=== PATIENT | male | born 1960 | race Caucasian/White ===

== ENCOUNTER 2016-08-12 14:12 | Observation (INO) ==
[2016-08-12] MEDS ORDERED: Aspirin 81 MG TAB.CHEW PO ONE (16:17)
--- NOTE | 2016-08-12 16:17 | Emergency Department Note ---
Disposition Clinical Impression: Chest pain Qualifiers: Chest pain type: unspecified Qualified Code(s): R07.9 - Chest pain, unspecified Fatigue Qualifiers: Fatigue type: unspecified Qualified Code(s): R53.83 - Other fatigue Disposition: Admitted As Inpatient Condition: Fair Referrals: NO,PCP [Primary Care Provider] - Forms: ED Satisfaction Letter Time of Disposition: 18:06 Chest Pain HPI - General Chief Complaint: ED Chest Pain Stated Complaint: C/P, SOB x2 days Time Seen by Provider: 08/12/16 15:20 Source: patient Limitations: no limitations Vital Signs Reviewed: Yes Nursing Notes Reviewed: Yes - History of Present Illness HPI Narrative: Patient is a 54-year-old male who presents with no cardiac history was had a episode of chest pain 6 months ago with negative blockages on heart catheterization. Study was done in [place] before patient moved. Patient presents today with episode of similar type chest pain midsternum 8/10 sharp stabbing nonreproducible palpation started 3 days ago. Patient states that he has been feeling fatigued and has had intermittent fevers of 101 degrees Fahrenheit over past 3 weeks. He also complains of worsening bilateral lower extremity pain with increase a sending erythema to both lower extremities below the knee 3 weeks as well. Patient states the way induration to his bilateral lower extremities significant for venous insufficiency started years ago. Patient denies history of diabetes or any other medical problems. He states is a family history of diabetes but has not been diagnosed. Patient currently does not have a PCP Pt complaint: chest pain Severity scale (1-10): 6 - Related Data Home Medications Medication Instructions Recorded Confirmed No Known Home Drugs 08/12/16 08/12/16 Allergies Allergy/AdvReac Type Severity Reaction Status Date / Time No Known Allergies Allergy Verified 08/12/16 14:20 All systems ED: reviewed and negative except as stated. Constitutional: Reports: fever Chest Pain PMH - Past Medical History Medical history: Reports: no medical history - Social History Smoking Status: Never smoker Alcohol use: Reports: none Drug use: Reports: none Physical Exam - General Limitations: no limitations General appearance: alert Course - Reevaluation(s) Reevaluation #1: Patient's condition is concerning for ACS/NH, DVT/PE, aortic dissection, esophageal rupture. Plan: CBC, BMP, chest x-ray Time: 15:57 Reevaluation #2: Patient states no change in symptoms so 10 out of 10 awaiting pain medication from pharmacy. Time: 16:20 Reevaluation #3: Patient received last dose nitroglycerin. Patient's pain 05/24. Time: 16:40 Additional Reevaluation(s): 1508 hrs: Patient states she is female. Pain still 05/24. - Consultations Consultation #1: Dr. Fairchild the hospitalist as accepted patient for admission to observation. Time: 18:06 Vital Signs Temperature 98.1 F 08/12/16 14:17 Pulse Rate 80 08/12/16 14:17 Respiratory Rate 18 08/12/16 14:17 Blood Pressure 166/81 08/12/16 14:17 O2 Sat by Pulse Oximetry 94 08/12/16 14:17 Temperature 98.1 F 08/12/16 14:17 Pulse Rate 77 08/12/16 15:20 Respiratory Rate 18 08/12/16 15:20 Blood Pressure 139/84 08/12/16 15:20 O2 Sat by Pulse Oximetry 96 08/12/16 15:20 Oxygen Delivery Oxygen Delivery Room Air Chest Pain - Lab Data Lab results reviewed: Yes I reviewed the patient's lab results. Lab results narrative: Short CBC 08/12/16 Range/Units 16:04 WBC 6.7 (4.3-11.1) K/mcL Hgb 12.4 L (12.9-16.9) g/dL Hct 37.1 L (37.5-50.1) % Plt Count 278 (140-400) K/mcL Neutrophils # 4.6 (1.6-8.9) K/mcL BMP 08/12/16 Range/Units 16:04 Sodium 140 (136-145) mEq/L Potassium 4.1 (3.5-4.5) mEq/L Chloride 105 (98-109) mEq/L Carbon Dioxide 29 (19-29) mEq/L BUN 13 (8-26) mg/dL Creatinine 0.76 (0.72-1.25) mg/dL Glucose 96 (70-99) mg/dL Calcium 8.9 (8.6-10.8) mg/dL Cardiac Enzymes 08/12/16 Range/Units 16:06 Troponin I 0.01 (0-0.03) ng/mL Liver Function 08/12/16 Range/Units 16:59 Total Bilirubin 0.4 (0.2-1.2) mg/dL Direct Bilirubin 0.2 (0.0-0.5) mg/dL AST 23 (5-34) Units/L ALT 16 (0-55) Units/L Alkaline Phosphatase 64 (38-126) Units/L Albumin 3.0 L (3.5-5.0) g/dL Urine 08/12/16 Range/Units 17:10 Urine Color Yellow (Yellow) Urine Clarity Clear (Clear) Urine pH 7.0 (5.0-8.0) pH Units Ur Specific [place] 1.019 (1.010-1.025) Urine Protein Negative (Neg-Trace) mg/dL Urine Glucose (UA) Normal (Normal) mg/dL - Radiology Data Radiology results reviewed: Yes I reviewed the patient's radiology results. Chest X-Ray 08/12/16 14:55 IMPRESSION: 1. Borderline enlarged cardiac silhouette. 2. Mild prominence of the pulmonary vasculature. D/ / Dinh Hooper MD / Dinh Hooper MD Interpreting Provider: Dinh Hooper MD - EKG Data EKG attestation: Yes I reviewed and interpreted this EKG. EKG shows normal: sinus rhythm Rate: normal Rhythm: NSR Heart Score - Score History: Moderately Suspicious EKG: Normal Age: 45-65 Risk Factors: 1-2 risk factors Troponin: Less than normal limit HEART Score Total: 3
[2016-08-12] MEDS: Nitroglycerin 0.4 MG TAB.SUBL SL PRN ×3 (16:26→16:40)
[2016-08-12 16:35] LABS: Basophils % 0.4 %; Eosinophils # 0.1 K/mcL (0.0-0.6); Eosinophils % 1.5 %; Hematocrit 37.1 % (37.5-50.1); Hemoglobin 12.4 g/dL (12.9-16.9); Immature Granulocytes % 0.3 % (0-4); Lymphocytes # 1.5 K/mcL (0.6-4.6); Mean Corpuscular HGB Conc 33.4 g/dL (31.6-35.5); Mean Corpuscular Hemoglobin 28.9 pg (28.0-33.3); Mean Corpuscular Volume 86.5 fL (83.0-100.0); Mean Platelet Volume 9.5 fL (9.4-12.4); Monocytes # 0.5 K/mcL (0.0-1.3); Monocytes % 7.3 %; Neutrophils # 4.6 K/mcL (1.6-8.9); Platelet Count 278 K/mcL (140-400); Red Blood Count 4.29 M/mcL (4.19-5.50); Red Cell Distribution Width 14.3 % (11.5-14.5); Segmented Neutrophils % 68.5 %
[2016-08-12 16:42] LABS: INR 1.1; Prothrombin Time 11.9 Seconds (9.4-12.1)
[2016-08-12 16:48] LABS: BUN/Creatinine Ratio 17 (6-26); Blood Urea Nitrogen 13 mg/dL (8-26); Calcium 8.9 mg/dL (8.6-10.8); Carbon Dioxide 29 mEq/L (19-29); Chloride 105 mEq/L (98-109); Glucose 96 mg/dL (70-99); Osmolality,Calculated 290 (280-300); Potassium 4.1 mEq/L (3.5-4.5); Sodium 140 mEq/L (136-145); eGFR For African Americans > 60 (> 60); eGFR For Non-African Americans > 60 (> 60)
[2016-08-12 17:26] LABS: Bilirubin,Urine Negative (Negative); Blood,Urine Negative (Negative); Clarity,Urine Clear (Clear); Color,Urine Yellow (Yellow); Glucose,Urine (UA) Normal (Normal); Ketones,Urine Negative (Negative); Leukocyte Esterase,Urine Negative (Negative); Nitrite,Urine Negative (Negative); Protein,Urine Negative (Neg-Trace); Specific Gravity,Urine 1.019 (1.010-1.025); Urobilinogen,Urine Normal (Normal)
[2016-08-12 17:33] LABS: Albumin/Globulin Ratio 0.7 (1.1-2.2); Bilirubin,Direct 0.2 mg/dL (0.0-0.5); Bilirubin,Indirect 0.2 mg/dL (0.0-1.2); Bilirubin,Total 0.4 mg/dL (0.2-1.2); Globulin 4.5 g/dL (2.4-3.5); Phosphorous 3.8 mg/dL (2.3-4.7); Total Protein 7.5 g/dL (6.0-8.3)
--- NOTE | 2016-08-12 17:54 | Emergency Department Note ---
START Narrative - START START: I examined this patient and my medical decision-making was reviewed with the FIELD SERVICE SUPERVISOR/PA/Advanced Practice Nurse/Resident Physician. I agree with the documented findings, disposition and treatment plan as described except to the extent set forth below. neg doppler bilat LE's needs admitted for r/o acs and leg infection
[2016-08-12] MEDS ORDERED: Naloxone 0.4 MG/ML INJ IVP PRN (20:01)
[2016-08-12] MEDS ORDERED: *HR* Morphine 2 MG/ML SYRINGE IVP PRN (20:01)
--- NOTE | 2016-08-12 20:14 | Internal Med History&Physical ---
Date of Encounter: 08/12/16 Time of Encounter: 20:08 Assessment and Plan (1) Chest pain Current visit: Yes Status: Acute Patient reporting intermittant mid-sternal chest pain that started last evening and has been worsening, it was relieved by nitro given in the ER. Initial troponin negative at 0.01. EKG with no ST elevations. CXR shows borderline enlarged cardiac silhouette and mild prominence of pulmonary vasculature. Risk factors include morbid obesity and family history. Patient reports he had a cardiac cath about 6 months ago at [facility] in [place], [place]. Ordered records request for cath and any other cardiac testing performed. Continuous manager review serial troponins echocardiogram in the morning. Qualifiers: Chest pain type: precordial pain Qualified Code(s): R07.2 - Precordial pain (2) Venous stasis ulcers of both lower extremities Current visit: Yes Status: Acute Patient with discoloration, swelling of BLE, with multiple venous stasis ulcers on bilateral shins. Consult to wound care ordered. (3) Bilateral edema of lower extremity Current visit: Yes Status: Acute Patient reports swelling has been worsening over the last week. Would recommend compression socks once his venous stasis ulcers are healed. Possibility of new CHF, will see what echocardiogram shows tomorrow. (4) DVT prophylaxis Current visit: Yes Status: Acute encourage ambulation lovenox 40mg SQ daily Internal Medicine - H&P: HPI Chief complaint: chest pain Admitted From: Emergency Dept Plans for Post Hospital Care: Home History of present illness: Mr. Yun is a 55 year old male with morbid obesity and no other significant past medical history presents to the ED today with complaints of chest pain. He reports the chest pain started last evening and he describes it as a dull ache. It comes and goes, and was increasing in intensity and duration so he came to the hospital. He reports some shortness of breath and nausea today as well as a headache. Additionally, his BLE have been swollen for the last week. He has some venous stasis ulcers on BLE that he reports have been there for several weeks, and discoloration that he reports is long- standing. He denies any lightheadedness, palpitations, recent fevers, chills or sweats. He denies any numbness or tingling. Evaluation in the ER included a troponin which was negative at 0.01. WBC was normal at 6.7. CXR showed borderline enlarged cardiac silhouette with mild prominence of the pulmonary vasculature. BLE dopplers were negative for DVT. On exam, patient is alert and oriented, in no distress, with BLE +3 pitting edema and BLE venous stasis ulcers. Heart has regular rate and rhythm, lungs are clear bilaterally to auscultation. Past Med Surg Social Fam HX - Past Medical History Medical history: no medical history - Past Surgical History Surgical History: orthopedic, other (c5-c6 fusion, right foot) - Social History Smoking Status: Never smoker Alcohol use: none Drug use: none - Family History Mother Living Status: Still Living Hx Family Cardiac Disorders: Yes Hx Family Endocrine Disorder: Yes (diabetes) Father Living Status: Age at : 75 Hx Family Cardiac Disorders: Yes Hx Family Respiratory Disorders: Yes Internal Medicine - H&P: Meds No Known Home Drugs 08/12/16 [History] Allergies No Known Allergies Allergy (Verified 08/12/16 14:20) All Systems PM: A 10-system review of systems was performed and is negative for pertinent findings except as documented above in the HPI. - Constitutional Constitutional: no chills, no fever(s), no night sweats - EENT Eyes: no change in vision, no discharge, no pain, no photophobia Ears: no ear discharge, no ear pain, no tinnitus Nose, mouth and throat: no dysphagia, no nasal discharge, no neck pain, no sore throat - Cardiovascular Cardiovascular ROS IM: chest pain, dyspnea, edema, no diaphoresis, no lightheadedness, no palpitations, no syncope - Respiratory Respiratory: cough (dry), no dyspnea, no wheezing, no excessive phlegm production - Gastrointestinal Gastrointestinal: no abdominal pain, no diarrhea, no hematemesis, no hematochezia, no melena, no nausea, no vomiting - Musculoskeletal Musculoskeletal ROS IM: no numbness, no tingling - Integumentary Integumentary IM: skin ulcer, no rash, no unusual bruising - Neurological Neurological ROS: headache(s), no confusion, no convulsions, no focal weakness, no numbness, no tingling, no tremor(s) - Hematologic/Lymphatic Hematologic/Lymphatic: no easy bruising - Constitutional Vitals: Temp Pulse Resp BP Pulse Ox 98.1 F 71 16 127/69 93 08/12/16 14:17 08/12/16 16:52 08/12/16 19:22 08/12/16 19:22 08/12/16 16:52 General appearance: Present: A&O X 3, morbidly obese, pleasant, no acute distress - Head Head exam: Present: atraumatic, normocephalic - Eye Eye exam: Present: PERRL, conjuntiva pink, sclera anicteric Pupils: Present: PERRL - Neck Neck exam general surgery: Present: supple, trachea midline. Absent: lymphadenopathy - Respiratory Respiratory exam: Present: CTAB. Absent: accessory muscle use, rales, rhonchi, wheezes - Cardiovascular Cardiovascular exam: Present: RRR, +S1, +S2. Absent: diastolic murmur, gallop, rubs, systolic murmur - Expanded Cardiovascular Exam Peripheral pulses: 3+/4+: Dorsalis Pedis (L) PM, Dorsalis Pedis (R) PM - GI/Abdominal GI/Abdominal exam: Present: normal bowel sounds, soft, no peritoneal signs. Absent: distended, tenderness - Extremities Exam Extremities exam: Present: pedal edema (ble +3 edema), warm, radial pulses palpable and symetrical. Absent: calf tenderness, cyanotic - Expanded Lower Extremities Exam Lower Leg exam: Present: erythema, swelling - Neurological Exam Neurological exam: Present: CN II-XII intact, oriented X3, no focal deficits. Absent: facial droop, speech deficit - Skin Skin exam: Present: dry, erythema Additional comments: BLE venous statis ulcers Internal Med - H&P Results - Labs CBC & Chem 7: 08/12/16 16:04 08/12/16 16:04 Labs: All Lab Results (24 Hours) 08/12/16 08/12/16 08/12/16 Range/Units 16:04 16:04 16:04 WBC 6.7 (4.3-11.1) K/mcL RBC 4.29 (4.19-5.50) M/mcL Hgb 12.4 L (12.9-16.9) g/dL Hct 37.1 L (37.5-50.1) % MCV 86.5 (83.0-100.0) fL MCH 28.9 (28.0-33.3) pg MCHC 33.4 (31.6-35.5) g/dL RDW 14.3 (11.5-14.5) % Plt Count 278 (140-400) K/mcL MPV 9.5 (9.4-12.4) fL Immature Gran % 0.3 (0-4) % Seg Neutrophils % 68.5 % Lymphocytes % 22.0 % Monocytes % 7.3 % Eosinophils % 1.5 % Basophils % 0.4 % Neutrophils # 4.6 (1.6-8.9) K/mcL Lymphocytes # 1.5 (0.6-4.6) K/mcL Monocytes # 0.5 (0.0-1.3) K/mcL Eosinophils # 0.1 (0.0-0.6) K/mcL Basophils # 0.0 (0.0-0.2) K/mcL PT 11.9 (9.4-12.1) Seconds INR 1.1 APTT 32.0 (26.0-36.0) Seconds Sodium 140 (136-145) mEq/L Potassium 4.1 (3.5-4.5) mEq/L Chloride 105 (98-109) mEq/L Carbon Dioxide 29 (19-29) mEq/L BUN 13 (8-26) mg/dL Creatinine 0.76 (0.72-1.25) mg/dL Est GFR ( Amer) > 60 (> 60) Est GFR (Non-Af Amer) > 60 (> 60) BUN/Creatinine Ratio 17 (6-26) Glucose 96 (70-99) mg/dL Calculated Osmolality 290 (280-300) Lactic Acid (0.5-2.2) mmol/L Calcium 8.9 (8.6-10.8) mg/dL Phosphorus (2.3-4.7) mg/dL Magnesium (1.6-2.6) mg/dL Total Bilirubin (0.2-1.2) mg/dL Direct Bilirubin (0.0-0.5) mg/dL Indirect Bilirubin (0.0-1.2) mg/dL AST (5-34) Units/L ALT (0-55) Units/L Alkaline Phosphatase (38-126) Units/L Troponin I (0-0.03) ng/mL Serum Total Protein (6.0-8.3) g/dL Albumin (3.5-5.0) g/dL Globulin (2.4-3.5) g/dL Albumin/Globulin Ratio (1.1-2.2) Urine Color (Yellow) Urine Clarity (Clear) Urine pH (5.0-8.0) pH Units Ur Specific [place] (1.010-1.025) Urine Protein (Neg-Trace) mg/dL Urine Glucose (UA) (Normal) mg/dL Urine Ketones (Negative) mg/dL Urine Blood (Negative) Urine Nitrite (Negative) Urine Bilirubin (Negative) Urine Urobilinogen (Normal) mg/dL Ur Leukocyte Esterase (Negative) Ur Culture Indicated? (NO) 08/12/16 08/12/16 08/12/16 Range/Units 16:06 16:59 16:59 WBC (4.3-11.1) K/mcL RBC (4.19-5.50) M/mcL Hgb (12.9-16.9) g/dL Hct (37.5-50.1) % MCV (83.0-100.0) fL MCH (28.0-33.3) pg MCHC (31.6-35.5) g/dL RDW (11.5-14.5) % Plt Count (140-400) K/mcL MPV (9.4-12.4) fL Immature Gran % (0-4) % Seg Neutrophils % % Lymphocytes % % Monocytes % % Eosinophils % % Basophils % % Neutrophils # (1.6-8.9) K/mcL Lymphocytes # (0.6-4.6) K/mcL Monocytes # (0.0-1.3) K/mcL Eosinophils # (0.0-0.6) K/mcL Basophils # (0.0-0.2) K/mcL PT (9.4-12.1) Seconds INR APTT (26.0-36.0) Seconds Sodium (136-145) mEq/L Potassium (3.5-4.5) mEq/L Chloride (98-109) mEq/L Carbon Dioxide (19-29) mEq/L BUN (8-26) mg/dL Creatinine (0.72-1.25) mg/dL Est GFR ( Amer) (> 60) Est GFR (Non-Af Amer) (> 60) BUN/Creatinine Ratio (6-26) Glucose (70-99) mg/dL Calculated Osmolality (280-300) Lactic Acid 0.7 (0.5-2.2) mmol/L Calcium (8.6-10.8) mg/dL Phosphorus 3.8 (2.3-4.7) mg/dL Magnesium 2.0 (1.6-2.6) mg/dL Total Bilirubin 0.4 (0.2-1.2) mg/dL Direct Bilirubin 0.2 (0.0-0.5) mg/dL Indirect Bilirubin 0.2 (0.0-1.2) mg/dL AST 23 (5-34) Units/L ALT 16 (0-55) Units/L Alkaline Phosphatase 64 (38-126) Units/L Troponin I 0.01 (0-0.03) ng/mL Serum Total Protein 7.5 (6.0-8.3) g/dL Albumin 3.0 L (3.5-5.0) g/dL Globulin 4.5 H (2.4-3.5) g/dL Albumin/Globulin Ratio 0.7 L (1.1-2.2) Urine Color (Yellow) Urine Clarity (Clear) Urine pH (5.0-8.0) pH Units Ur Specific [place] (1.010-1.025) Urine Protein (Neg-Trace) mg/dL Urine Glucose (UA) (Normal) mg/dL Urine Ketones (Negative) mg/dL Urine Blood (Negative) Urine Nitrite (Negative) Urine Bilirubin (Negative) Urine Urobilinogen (Normal) mg/dL Ur Leukocyte Esterase (Negative) Ur Culture Indicated? (NO) 08/12/16 Range/Units 17:10 WBC (4.3-11.1) K/mcL RBC (4.19-5.50) M/mcL Hgb (12.9-16.9) g/dL Hct (37.5-50.1) % MCV (83.0-100.0) fL MCH (28.0-33.3) pg MCHC (31.6-35.5) g/dL RDW (11.5-14.5) % Plt Count (140-400) K/mcL MPV (9.4-12.4) fL Immature Gran % (0-4) % Seg Neutrophils % % Lymphocytes % % Monocytes % % Eosinophils % % Basophils % % Neutrophils # (1.6-8.9) K/mcL Lymphocytes # (0.6-4.6) K/mcL Monocytes # (0.0-1.3) K/mcL Eosinophils # (0.0-0.6) K/mcL Basophils # (0.0-0.2) K/mcL PT (9.4-12.1) Seconds INR APTT (26.0-36.0) Seconds Sodium (136-145) mEq/L Potassium (3.5-4.5) mEq/L Chloride (98-109) mEq/L Carbon Dioxide (19-29) mEq/L BUN (8-26) mg/dL Creatinine (0.72-1.25) mg/dL Est GFR ( Amer) (> 60) Est GFR (Non-Af Amer) (> 60) BUN/Creatinine Ratio (6-26) Glucose (70-99) mg/dL Calculated Osmolality (280-300) Lactic Acid (0.5-2.2) mmol/L Calcium (8.6-10.8) mg/dL Phosphorus (2.3-4.7) mg/dL Magnesium (1.6-2.6) mg/dL Total Bilirubin (0.2-1.2) mg/dL Direct Bilirubin (0.0-0.5) mg/dL Indirect Bilirubin (0.0-1.2) mg/dL AST (5-34) Units/L ALT (0-55) Units/L Alkaline Phosphatase (38-126) Units/L Troponin I (0-0.03) ng/mL Serum Total Protein (6.0-8.3) g/dL Albumin (3.5-5.0) g/dL Globulin (2.4-3.5) g/dL Albumin/Globulin Ratio (1.1-2.2) Urine Color Yellow (Yellow) Urine Clarity Clear (Clear) Urine pH 7.0 (5.0-8.0) pH Units Ur Specific [place] 1.019 (1.010-1.025) Urine Protein Negative (Neg-Trace) mg/dL Urine Glucose (UA) Normal (Normal) mg/dL Urine Ketones Negative (Negative) mg/dL Urine Blood Negative (Negative) Urine Nitrite Negative (Negative) Urine Bilirubin Negative (Negative) Urine Urobilinogen Normal (Normal) mg/dL Ur Leukocyte Esterase Negative (Negative) Ur Culture Indicated? NO (NO) - Diagnostic Studies Chest x-ray Additional comments: Chest X-Ray 08/12/16 14:55 IMPRESSION: 1. Borderline enlarged cardiac silhouette. 2. Mild prominence of the pulmonary vasculature. D/ / Dinh Hooper MD / Dinh Hooper MD Interpreting Provider: Dinh Hooper MD
[2016-08-12] MEDS: Famotidine 20 MG TABLET PO SCH (21:45)
[2016-08-13 05:09] LABS: Basophils # 0.1 K/mcL (0.0-0.2); Basophils % 0.8 %; Eosinophils # 0.1 K/mcL (0.0-0.6); Eosinophils % 2.2 %; Hematocrit 36.1 % (37.5-50.1); Immature Granulocytes % 0.5 % (0-4); Lymphocytes # 1.6 K/mcL (0.6-4.6); Lymphocytes % 24.8 %; Mean Corpuscular HGB Conc 33.2 g/dL (31.6-35.5); Mean Corpuscular Hemoglobin 28.2 pg (28.0-33.3); Mean Corpuscular Volume 84.7 fL (83.0-100.0); Mean Platelet Volume 9.3 fL (9.4-12.4); Monocytes # 0.6 K/mcL (0.0-1.3); Monocytes % 8.9 %; Neutrophils # 4.1 K/mcL (1.6-8.9); Platelet Count 262 K/mcL (140-400); Red Blood Count 4.26 M/mcL (4.19-5.50); Red Cell Distribution Width 14.2 % (11.5-14.5); Segmented Neutrophils % 62.8 %
[2016-08-13 05:54] LABS: BUN/Creatinine Ratio 18 (6-26); Blood Urea Nitrogen 14 mg/dL (8-26); Calcium 8.5 mg/dL (8.6-10.8); Carbon Dioxide 24 mEq/L (19-29); Chloride 108 mEq/L (98-109); Glucose 118 mg/dL (70-99); Osmolality,Calculated 294 (280-300); Potassium 3.7 mEq/L (3.5-4.5); Sodium 141 mEq/L (136-145); eGFR For African Americans > 60 (> 60); eGFR For Non-African Americans > 60 (> 60)
--- NOTE | 2016-08-13 06:45 | Electrocardiograph Report ---
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
[2016-08-13] MEDS ORDERED: *HR* Enoxaparin 40 MG/0.4 ML SYRINGE SQ SCH (07:00)
[2016-08-13] MEDS: Famotidine 20 MG TABLET PO SCH (08:08)
--- NOTE | 2016-08-13 11:02 | ECHO - Doppler Report ---
Echocardiogram Name: Behzad Yun Date of Study: 08/13/2016 Date: 1960 Ht: 73.0 in Medical Record#: [id number] Age: 55 Wt: 386.0 lb Gender: Male BSA: 2.85 Order #: [id number] Location: [facility] Room #: 2B22 Reading Physician: Stephen Luna MD, [facility] Insurance Sales Executive: John Joya Ordering Physician: Alison Harrington, ANTHONY Primary Physician: None Indications: Chest pain Impressions: Technically sub-optimal due to body habitus. Normal LV systolic function, LVEF 55%. Normal right ventricular size and function. No significant valvular dysfunction. Left Ventricular Wall Motion: Rest Echo Findings All wall segments showed normal motion. Findings: Study Quality * Technically sub-optimal due to body habitus. ECG Findings * Normal sinus rhythm. Left Ventricle * Normal LV systolic function, LVEF 55%. * Normal LV chamber size and wall thickness. * Indeterminate diastolic function. Right Ventricle * Normal right ventricular size and function. Left Atrium * Normal left atrial size. Right Atrium * Normal right atrial size. Aorta * Aortic root was not well visualized. Appears normal in size. Pericardium * There is no pericardial effusion present. IVC * Normal IVC dimensions and inspiratory collapse. Aortic Valve * Aortic valve not well visualized. Appears trileaflet with mild sclerosis. * No aortic stenosis. * No aortic regurgitation. Mitral Valve * Normal mitral valve structure. * No mitral stenosis. * Trace mitral regurgitation. Tricuspid Valve * Normal tricuspid valve structure. * No tricuspid stenosis. * Trace tricuspid regurgitation. * Unable to estimate RVSP due to lack of TR jet. Pulmonic Valve * Pulmonic valve not well visualized. * No pulmonic stenosis. * No pulmonic regurgitation. History Family History of CAD Measurements: BP: 138/ 70 2D Normal Values RVIDd: 3.70 cm IVSd: .90 cm 0.6 - 1.0 cm LVIDd: 5.50 cm 3.7 - 5.6 cm LVPWd: .90 cm 0.6 - 1.1 cm LVIDs: 3.60 cm 1.5 - 3.6 cm AO: 2.90 cm < 4.0 cm %FS: 34.50 cm >25 % LA volume: 58 Mitral Valve Peak E:1.21 m/sec Peak A:.67 m/sec E/A Ratio:1.8 Updated by Stephen Luna MD, [facility] on 08/13/2016 10:56:18 AM electronically signed on 08/13/2016 10:56:40 AM with status of Final Wall Motion [place]: 1=Normal, 2=Hypokinesis, 3=Akinesis, 4=Dyskinesis, 5=Aneurysmal, 6=Hyperkinetic, X=Not Visualized (Blank)=Missing
[2016-08-13] MEDS ORDERED: Miconazole 2% ointment 114 GM TUBE TP SCH (14:00)
[2016-08-13 15:12] VITALS: BP 133/75
--- NOTE | 2016-08-13 15:54 | Venous Imaging Report ---
LE Venous Duplex Patient Name:Behzad Yun Order Number:[id number] Procedure Date:08/12/2016 Date:1960Age:55 yrs Gender:Male Location:[facility] ED Room #: ER27 Lime Mixer:Key Sudheerluis Referring MD:Clint Hanna, bin cleaner:None Reading MD:Chris Perez MD Primary Indications:Swelling, redness, pain Secondary Indications: Impressions: Bilateral lower extremity: normal superficial and deep exam. Recommendations: After imaging the patient returned to their room. Gave vascular preliminary results to Clint Hanna in the emergency department on 08/12/2016 at 17:50. Test completed on 08/12/2016 at 5:47:00 pm. Findings Venous Duplex Results: Right: Venous imaging of the lower extremity reveals full patency and normal vessel compressibility of the right distal iliac, right common femoral, right superficial femoral, right popliteal, right posterior tibial, right peroneal, right great saphenous and right lesser saphenous. Doppler signals in the evaluated veins were normal. Left: Venous imaging of the lower extremity reveals full patency and normal vessel compressibility of the left distal iliac, left common femoral, left superficial femoral, left popliteal, left posterior tibial, left peroneal, left great saphenous and left lesser saphenous. Doppler signals in the evaluated veins were normal. Prior Study: No prior study available for comparison. Lower Extremity Venous Duplex Side Vein Compress Spontaneous Flow Augment Diameter (cm) Depth (cm) Right Distal Iliac Normal Yes Phasic Yes Right Common Femoral Normal Yes Phasic Yes Right Superficial Femoral Normal Yes Phasic Yes Right Popliteal Normal Yes Phasic Yes Right Posterior Tibial Normal Yes Phasic Yes Right Peroneal Normal Yes Phasic Yes Right Great Saphenous Normal Yes Phasic Yes Right Lesser Saphenous Normal Yes Phasic Yes Left Distal Iliac Normal Yes Phasic Yes Left Common Femoral Normal Yes Phasic Yes Left Superficial Femoral Normal Yes Phasic Yes Left Popliteal Normal Yes Phasic Yes Left Posterior Tibial Normal Yes Phasic Yes Left Peroneal Normal Yes Phasic Yes Left Great Saphenous Normal Yes Phasic Yes Left Lesser Saphenous Normal Yes Phasic Yes Updated by Chris Perez MD on 08/13/2016 3:49:23 PM electronically signed on 08/13/2016 3:49:41 PM with status of Final
--- NOTE | 2016-08-13 16:42 | Discharge Summary ---
Date of Encounter: 08/13/16 Time of Encounter: 12:30 - Discharge Diagnosis (1) Chest pain Priority: Primary Status: Resolved Comments: Patient denied chest pain or shortness of breath above his normal day of discharge. Troponins negative 3. He also stated his pedal edema had returned to his baseline. Echocardiogram revealing ejection fraction of 55% with indeterminate diastolic function. Suspect diastolic heart failure, will initiate low-dose furosemide and have him follow up closely outpatient. Qualifiers: Chest pain type: precordial pain Qualified Code(s): R07.2 - Precordial pain (2) Bilateral edema of lower extremity Priority: Secondary Status: Chronic Comments: Acute on chronic and worsened over the past week prior to presentation. Suspect acute diastolic heart failure, follow-up closely outpatient (3) Venous stasis ulcers of both lower extremities Priority: Secondary Status: Chronic (4) DVT prophylaxis Priority: Primary Status: Acute Comments: Subcutaneous Lovenox while admitted (5) Morbid obesity with BMI of 50.0-59.9, adult Priority: Secondary Status: Chronic (6) Diastolic heart failure Priority: Primary Status: Suspected - Discharge Medications Prescriptions: Aspirin 81 mg PO DAILY #30 tab.chew Furosemide [Lasix] 20 mg PO DAILY #30 tablet Miconazole 2% ointment [Aloe Universal Antifungal Ointment] 1 appl TP DAILY #1 tube Home Medications: Aspirin 81 mg PO DAILY #30 tab.chew 08/13/16 [Rx] Furosemide [Lasix] 20 mg PO DAILY #30 tablet 08/13/16 [Rx] Miconazole 2% ointment [Aloe Universal Antifungal Ointment] 1 appl TP DAILY #1 tube 08/13/16 [Rx] Allergies/Adverse Reactions: Allergies No Known Allergies Allergy (Verified 08/12/16 14:20) Procedures/tests Complete & Pending: Procedures Performed prior 72 hours Category Date Time Status EV echocardiogram Routine Y 08/13/16 20:05 Completed Date of admission: 08/12/16 18:18 Primary care physician: PCP NO Consults: 08/12/16 20:05 Consult to Wound Care [CONS] Routine Reason for Consult: venous stasis ulcers on bilateral legs Call Completed: No Discharging clinician: Iza Siddiqui Anticipated date of discharge: 08/13/16 - Patient Status Disposition: Home, Self-Care Condition: Fair Functional capacity at discharge: independent ambulation Overall status at discharge: patient is progressing back to baseline - Discharge Instructions Follow Up With: NO,PCP [Primary Care Provider] - Additional Instructions: Follow-up with your new primary care provider in [place] as soon as possible - Diet and Activity Activity: increase activity as tolerated, resume usual activities as tolerated Diet: low fat, low cholesterol (Fluid restriction 2 L per day), low salt diet Hospital course: Mr. Yun is a 55 year old male with past medical history of morbid obesity. Patient presented to the emergency room for chief complaint of chest pain that started on the evening prior to presentation and was described as a dull ache. Patient stating the pain was intermittent and had increased in intensity and duration prompting his presentation to the emergency department. He also endorsed shortness of breath, nausea, headache. He also states that his bilateral lower extremity swelling had worsened over the week prior to presentation. Workup in the emergency department revealing chest x-ray consistent with mild CHF. Patient was admitted to the hospitalist service for further evaluation and management. Troponins negative 3. Patient denied chest pain during this admission. Echocardiogram revealing ejection fraction of 55% with indeterminate diastolic function. Suspect new onset diastolic heart failure. Patient was treated with furosemide and his lower extremity edema had returned back to his baseline of 2+ pitting edema bilaterally. He was seen by wound management who started him on antifungal cream and cleared him for outpatient follow-up. He lower extremity Dopplers which ruled out DVTs. Urinalysis was negative. He denied shortness of breath above his normal on day of discharge. Of note, patient was not on any medications prior to this presentation. He was started on baby aspirin and low-dose furosemide. Regarding other risk factor modification, patient was normotensive during this admission without any antihypertensive medications. He is currently [facility] a [facility] location in [facility] 2 days after this discharge and he states that he will have a new primary care provider at that time. He was instructed to follow-up with his new primary care provider as soon as possible. He was discharged home in stable condition with close outpatient follow-up recommended. He was also educated at length on fluid and sodium restricted diets. He was also instructed on how to care for his lower extremity venous stasis wounds. ITS Impressions Chest X-Ray 08/12/16 14:55 IMPRESSION: 1. Borderline enlarged cardiac silhouette. 2. Mild prominence of the pulmonary vasculature. D/ / Dinh Hooper MD / Dinh Hooper MD Interpreting Provider: Dinh Hooper MD Echocardiogram impressions: Technically suboptimal due to body habitus. Normal LV systolic function, LVEF 55%. Normal right ventricular size and function. No significant valvular dysfunction. Indeterminate diastolic function. - Time Spent with Patient Total time spent providing and/or coordinating discharge services: - Constitutional Vitals: Temp Pulse Resp BP Pulse Ox 98.0 F 75 17 133/75 96 08/13/16 15:10 08/13/16 15:10 08/13/16 15:10 08/13/16 15:10 08/13/16 15:10 General appearance: Present: A&O X 3, morbidly obese, pleasant, no acute distress, answers questions appropriately - Head Head exam: Present: atraumatic, normocephalic - Eye Eye exam: Present: PERRL, conjuntiva pink, sclera anicteric Pupils: Present: PERRL - Neck Neck exam general surgery: Present: supple, trachea midline. Absent: lymphadenopathy - Respiratory Respiratory exam: Present: CTAB. Absent: accessory muscle use, rales, respiratory distress, rhonchi, wheezes - Cardiovascular Cardiovascular exam: Present: RRR, +S1, +S2. Absent: diastolic murmur, gallop, rubs, systolic murmur - GI/Abdominal GI/Abdominal exam: Present: normal bowel sounds, soft, no peritoneal signs. Absent: distended, tenderness - Extremities Exam Extremities exam: Present: pedal edema, warm, radial pulses palpable and symetrical. Absent: calf tenderness, cyanotic - Neurological Exam Neurological exam: Present: alert, CN II-XII intact, oriented X3, no focal deficits, strengths equal and symetr throughout. Absent: pronater drift, facial droop, speech deficit - Skin Skin exam: Present: dry, intact, normal color, warm
== END 2016-08-13 19:02 | disposition home or self-care (01) ==
LOC: EMEROO 14:12 → 3BNU 14:12 → SUATTDRO 18:18 → 3BNU 19:30
PROVIDERS: ADMIT Hospitalist; ATTEND Nurse Practitioner Family